=== PATIENT | male | born 1980 | race Two or more races ===

== ENCOUNTER 2022-01-02 05:12 | Day surgery (SDC) | payer OTHER ==
[2022-01-02] MEDS ORDERED: PERCOCET 5-3251 EACH PO (09:33)
[2022-01-02] MEDS ORDERED: COLACE100 MG PO (09:33)
[2022-01-02] MEDS ORDERED: NEURONTIN300 MG PO (09:33)
== END 2022-01-02 14:50 | disposition home or self-care (01) ==
LOC: CIR.AMB 05:12
PROVIDERS: ATTEND Surgery
DX: K64.8 Other hemorrhoids (principal); Z86.16 Personal history of COVID-19; Z71.6 Tobacco abuse counseling; F17.210 Nicotine dependence, cigarettes, uncomplicated

== ENCOUNTER → 2022-01-02 | Emergency (ER) | payer OTHER ==
[~2022-01-02] VITALS: Ht 167.6 cm; Wt 86.2 kg
[~2022-01-02] MED LIST: COLACE100 MG PO; NEURONTIN300 MG PO; PERCOCET 5-3251 EACH PO
== END | disposition home or self-care (01) ==
LOC: ER 18:24
DX: R33.9 Retention of urine, unspecified (principal)